=== PATIENT | female | born 1935 | race Caucasian/White ===

== ENCOUNTER → 2016-04-02 09:01 | Day surgery (SDC) | payer MEDICARE, BC ==
[~2016-04-02 09:01] MED LIST: Acetaminophen TAB* 325 MG PO PRN; Buffered Lidocaine 1% SYR 3ML* 3 ML/SYR SYRINGE INTRADERM ONE; Buffered Lidocaine 1% SYR 3ML* 3 ML/SYR SYRINGE ONE; Cyclopentolate 1% OPTH.SOL* 2 ML BTL ONE; Flurbiprofen 0.03% OPTH.SOL* 2.5 ML BTL ONE; Lidocaine 1% MPF* 2 ML VIAL ONE; Lidocaine 2% EPI 1:200000 MPF* 20 ML VIAL ONE; Midazolam* 1 MG/ML 2 ML VIAL (2 MG) ONE; Neomycin/Polymy/Dex OPTH.SUSP* MAXITROL 0.1% 5 ML ONE; Phenylephrine 2.5% OPTH.SOL* 2 ML BTL ONE; Povidone Iodine 5% OPTH* 30 ML BTL ONE; Proparacaine 0.5% OPHTH.SOL* 15 ML BTL ONE; acetaZOLAMIDE TAB* 250 MG ONE
[2016-04-02 13:00] VITALS: BP 146/78
--- NOTE | 2016-04-02 15:27 | OP ---
DATE OF OPERATION: 04/02/2016. DATE OF : 1935. SURGEON: Roberto Cottrell M.D. PREOPERATIVE DIAGNOSIS: Cataract right eye. POSTOPERATIVE DIAGNOSIS: Cataract right eye. OPERATIVE PROCEDURE: Phacoemulsification right eye with IOL. PROCEDURE: The patient was brought to the operating room after being given 1/2% Alcaine with epinep hrine drops in the preoperative area. The eye was prepped and draped in the usual sterile fashion. Sterile drape and eyelid speculum were placed. Again, topical 1/2% Alcaine with epinephrine was gi gucci. A paracentesis incision was made at the 9 o'clock position with the No.75 blade. Clear cornea incision 2.2 x 2.2-mm was created at the 12 o'clock position starting at the anterior limbus using the 2.2-mm keratome. The anterior chamber was irrigated with 0.4 mL of 1% non-preservative intracam eral lidocaine and filled with DisCoVisc. A capsulorrhexis was completed using the cystotome and th e Utrata forceps. Hydrodissection was performed with balanced salt solution. The lens nucleus was r emoved with the Phacoemulsification handpiece without incident. Cortex was removed with the irrigat ion-aspiration handpiece. The capsular bag was re-inflated using DisCoVisc and an SN60WF 26.5 impla nt was inserted with the shooter. The irrigation-aspiration handpiece was used to remove all residu al DisCoVisc. The eye was refilled with balanced salt solution and the wound checked and found to b e watertight. Topical Maxitrol drops were given. [id number]/[facility] #: [id number]
== END | disposition home or self-care (01) ==
LOC: OREAST 09:01
PROVIDERS: ATTEND Specialist
DX: H25.811 Combined forms of age-related cataract, right eye (principal); H40.1424 Capsular glaucoma with pseudoexfoliation of lens, left eye, indeterminate stage; D31.31 Benign neoplasm of right choroid; Z87.891 Personal history of nicotine dependence; I10 Essential (primary) hypertension
CPT/HCPCS: A9270-GY; J2250; V2632

== ENCOUNTER → 2016-04-09 06:41 | Day surgery (SDC) | payer MEDICARE, BC ==
[2016-04-09 08:50] VITALS: BP 136/70
--- NOTE | 2016-04-09 10:51 | OP ---
OPERATIVE NOTE: DATE OF OPERATION: 04/09/16 DATE OF : [birth year] SURGEON: Roberto Cottrell M.D. PREOPERATIVE DIAGNOSIS: Cataract, left eye. POSTOPERATIVE DIAGNOSIS: Cataract, left eye. OPERATIVE PROCEDURE: Phacoemulsification, left eye, with IOL and CTR. DESCRIPTION OF PROCEDURE: The patient was brought to the operating room after being given 1/2% Alca ine with epinephrine drops in the preoperative area. The eye was prepped and draped in the usual st erile fashion. Sterile drape and eyelid speculum were placed. Again, topical 1/2% Alcaine with epi nephrine was given. A paracentesis incision was made at the 3 o'clock position with the No.75 blade . Clear cornea incision 2.2 x 2.2-mm was created at the 6 o'clock position starting at the anterior limbus using the 2.2-mm keratome. The anterior chamber was irrigated with 0.4 mL of 1% non-preserva tive intracameral lidocaine and filled with DisCoVisc. A capsulorrhexis was completed using the cys totome and the Utrata forceps. Hydrodissection was performed with balanced salt solution. The lens nucleus was removed with the Phacoemulsification handpiece without incident. Cortex was removed wit h the irrigation-aspiration handpiece. The capsular bag was re-inflated using DisCoVisc and an SN60 WF 27 implant was inserted with the shooter followed by a CTR; it was [id number] inserted with its shoot er. The irrigation- aspiration handpiece was used to remove all residual DisCoVisc. The eye was re filled with balanced salt solution and the wound checked and found to be watertight. Topical Maxitr ol drops were given. [id number]/[facility] #: [id number]
== END | disposition home or self-care (01) ==
LOC: OREAST 06:41
PROVIDERS: ATTEND Specialist
DX: H25.812 Combined forms of age-related cataract, left eye (principal); H40.1424 Capsular glaucoma with pseudoexfoliation of lens, left eye, indeterminate stage; D31.31 Benign neoplasm of right choroid; I10 Essential (primary) hypertension
CPT/HCPCS: A9270-GY; J2250; V2632

== ENCOUNTER → 2016-07-31 07:29 | Day surgery (SDC) | payer MEDICARE, BC ==
[~2016-07-31 07:29] MED LIST changes: -Acetaminophen TAB* 325 MG PO PRN; -Buffered Lidocaine 1% SYR 3ML* 3 ML/SYR SYRINGE ONE; +Bupivacaine 0.25% SDV* 30 ML INJ SCH; -Cyclopentolate 1% OPTH.SOL* 2 ML BTL ONE; -Flurbiprofen 0.03% OPTH.SOL* 2.5 ML BTL ONE; -Lidocaine 1% MPF* 2 ML VIAL ONE; -Lidocaine 2% EPI 1:200000 MPF* 20 ML VIAL ONE; +Lidocaine 2% PF * 5 ML VIAL ONE; -Midazolam* 1 MG/ML 2 ML VIAL (2 MG) ONE; -Neomycin/Polymy/Dex OPTH.SUSP* MAXITROL 0.1% 5 ML ONE; -Phenylephrine 2.5% OPTH.SOL* 2 ML BTL ONE; -Povidone Iodine 5% OPTH* 30 ML BTL ONE; -Proparacaine 0.5% OPHTH.SOL* 15 ML BTL ONE; +Propofol* 10 MG/ML 20 ML BTL IV PUSH ONE; -acetaZOLAMIDE TAB* 250 MG ONE; +ceFAZolin 2 GM PREMIX(*) 2 GM/50 ML BAG IVPB ONE; +fentaNYL* 50 MCG/ML 2 ML VIAL (100 MCG VIAL) ONE
[2016-07-31 10:12] VITALS: BP 103/66
== END | disposition home or self-care (01) ==
LOC: OREAST 07:29
PROVIDERS: ATTEND Plastic Surgery
DX: M65.352 Trigger finger, left little finger (principal); I10 Essential (primary) hypertension; K21.9 Gastro-esophageal reflux disease without esophagitis; F32.9 Major depressive disorder, single episode, unspecified
CPT/HCPCS: J0690; J2704; J3010

== ENCOUNTER 2018-02-09 12:26 | Day surgery (SDC) | payer MEDICARE, BC ==
[~2018-02-09 12:26] MED LIST changes: +Acetaminophen IV 1GM/100ML * 10 MG/ML VIAL IVPB ONE; +Buffered Lidocaine 0.9% SYRIN* 5 ML/SYR SYRINGE INTRADERM ONE; -Buffered Lidocaine 1% SYR 3ML* 3 ML/SYR SYRINGE INTRADERM ONE; -Bupivacaine 0.25% SDV* 30 ML INJ SCH; +Dexamethasone TAB* 4 MG PO ONE; +Famotidine IV* 10 MG/ML 2 ML (20 mg) IV ONE; -Lidocaine 2% PF * 5 ML VIAL ONE; +Morphine VIAL* 4 MG/ML VIAL (1 ml vial) IV PRN; +Naloxone* 0.4 MG/ML 1 ML VIAL IV PRN; +Ondansetron TAB* 4 MG PO ONE; +PROCHLORPERAZINE INJ 5 MG/ML 2 ML VIAL IV PRN; -Propofol* 10 MG/ML 20 ML BTL IV PUSH ONE; -ceFAZolin 2 GM PREMIX(*) 2 GM/50 ML BAG IVPB ONE; +fentaNYL* 50 MCG/ML 2 ML VIAL (100 MCG VIAL) IV PRN; -fentaNYL* 50 MCG/ML 2 ML VIAL (100 MCG VIAL) ONE; +oxyCODONE TAB* 5 MG TAB PO PRN
[2018-02-09] MEDS ORDERED: KETAMINE HCL* 50 MG/ML 10 ML VIAL ONE (12:34)
[2018-02-09] MEDS ORDERED: fentaNYL* 50 MCG/ML 2 ML VIAL (100 MCG VIAL) ONE (12:34)
[2018-02-09] MEDS ORDERED: Midazolam* 1 MG/ML 2 ML VIAL (2 MG) ONE (12:34)
[2018-02-09] MEDS ORDERED: Heparin VIAL(*) 5000 UNITS/ML VIAL (FIVE THOUSAND) ONE (12:56)
[2018-02-09] MEDS ORDERED: ceFAZolin 2 GM PREMIX in ORs 2 GM/50 ML BAG IVPB ONE (12:56)
[2018-02-09] MEDS ORDERED: Dexamethasone TAB* 4 MG ONE (12:56)
[2018-02-09] MEDS ORDERED: Ondansetron ODT TAB* 4 MG ONE (12:56)
[2018-02-09] MEDS ORDERED: Famotidine IV* 10 MG/ML 2 ML (20 mg) ONE (12:56)
[2018-02-09] MEDS ORDERED: Acetaminophen IV 1GM/100ML * 100 ML ONE (12:59)
[2018-02-09] MEDS ORDERED: Morphine VIAL* 4 MG/ML VIAL (1 ml vial) ONE (12:59)
[2018-02-09] MEDS ORDERED: Bupivacaine 0.25% SDV PF* 10 ML VIAL INJ ONE (14:22)
[2018-02-09] MEDS ORDERED: ROPIVACAINE 5 MG/ML 30 ML BTL (0.5%) ONE (17:29)
[2018-02-09] MEDS ORDERED: Propofol* 10 MG/ML 20 ML BTL ONE (17:29)
[2018-02-09] MEDS ORDERED: Lidocaine 2% PF * 5 ML VIAL ONE (17:29)
[2018-02-09 18:12] VITALS: BP 136/83
== END 2018-02-09 18:47 | disposition home or self-care (01) ==
LOC: OR 12:26
PROVIDERS: ATTEND Plastic Surgery
DX: M18.12 Unilateral primary osteoarthritis of first carpometacarpal joint, left hand (principal); G89.18 Other acute postprocedural pain; I10 Essential (primary) hypertension; K21.9 Gastro-esophageal reflux disease without esophagitis
CPT/HCPCS: 76000; 88304; 88311; A9270-GY; J0690; J1644; J2250; J2270; J2704; J2795; J3010; J3490; J8540